=== PATIENT | male | born 1980 | race Caucasian/White ===

== ENCOUNTER 2023-03-19 19:05 | Inpatient (IN) | payer MEDICAID, SELFPAY ==
[2023-03-19] VITALS (19 sets, daily range): BP systolic 114–176; BP diastolic 46–80; PULSE 73–110; RESP 15–21; TEMP 37.7; O2SAT 91–100
--- NOTE | ~2023-03-19 | XR_ITS ---
Portable chest x-ray Comparison: 03/19/2023 Clinical History: Lung infiltrate Findings: Stable right-sided central venous line. Lungs are essentially clear, without focal consoli dation or pleural effusion. Previously noted right upper lobe airspace opacities essentially resolved . Cardiomediastinal silhouette is stable. Bones and soft tissues are unremarkable. Impression: Essentially complete interval resolution of right upper lobe airspace opacity. No significant pulmona ry abnormality evident on the current exam. Stable support line. Reviewed, dictated and finalized at location . ING STITCH REMOVER Impression: Essentially complete interval resolution of right upper lobe airspace opacity. No significant pulmonary abnormality evident on the current exam. Stable support line.
--- NOTE | ~2023-03-19 | XR_ITS ---
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 RESULT: Lines, tubes, and devices: None. Lungs and pleura: Low volumes with crowding. Irregular right upper lung opacity. Cardiomediastinal silhouette: Stable. Other: No acute osseous or upper abdominal finding. IMPRESSION: Irregular right upper lung opacity, may represent the consolidation of pneumonia. Pulmonary mass not excluded. Recommend short-term radiographic follow-up to demonstrate improvement/resolution. Reviewed, dictated and finalized at location K. RTISER IMPRESSION: Irregular right upper lung opacity, may represent the consolidation of pneumoni a. Pulmonary mass not excluded. Recommend short-term radiographic follow-up to demonstrate improvement/resolution.
[2023-03-19 19:57] LABS: Alveolar/Arterial O2 Gradient 98.9 mmHg; Base Excess ABG 1.2 mEq/l (+/-2.0); Fractional Inspired Oxygen 28 %; HCO3 ABG 24.4 mEq/l (22.0-26.0); Oxygen Content ABG 9.3 %vol (16.0-22.0); Oxyhemoglobin 90.9 % THb (90.0-100.0); PCO2 ABG 32.2 mmHg (35.0-45.0); PO2 ABG 62.7 mmHg (80.0-100.0); PO2 FiO2 Ratio Arterial Blood 2.24 %; pH ABG 7.497 (7.350-7.450)
[2023-03-19 19:58] LABS: Modified Allen's Test Pass; Site Drawn LEFT RADIAL
[2023-03-19 19:59] LABS: Device NASAL CANNULA
[2023-03-19 20:00] LABS: Total Hemoglobin 7.2 g/dL (12.0-18.0)
--- NOTE | 2023-03-19 20:14 | PC.NURSE ---
pt refused ct. pt stated he recently got a scan at [place] and the only reason he was confused at [facility] is because they just woke him up .
[2023-03-19 21:00] LABS: INR 1.6; Prothrombin Time 19.9 Seconds (11.1-14.7)
[2023-03-19 21:02] LABS: Partial Thromboplastin Time 56.3 SECONDS (22.3-36.8)
[2023-03-19 21:03] LABS: Alanine Aminotransferase 30 U/L (6-50); Albumin Level 2.6 g/dL (3.5-5.1); Alkaline Phosphatase 78 U/L (38-126); Anion Gap 3 mmol/L (8-16); Aspartate Amino Transferase 38 U/L (17-59); Bilirubin,Total 0.7 mg/dL (0.2-1.3); Blood Urea Nitrogen 20 mg/dL (9-20); Calcium 8.3 mg/dL (8.4-10.2); Carbon Dioxide 26 mmol/L (22-30); Chloride 103 mmol/L (98-107); Estimated CRCL calculation 96 ml/min; Estimated Glomerular Filt Rate 55; Glucose 115 mg/dL (65-110); Magnesium 1.6 mg/dL (1.6-2.3); Potassium 3.3 mmol/L (3.4-5.0); Sodium 132 mmol/L (137-145)
[2023-03-19] MEDS: SODIUM CHLORIDE 0.9% IV 1,000 ML 999 ML IV CONT (21:04)
[2023-03-19 21:15] LABS: NT Pro B Type Natriuretic Pept 291 pg/mL (19.9-100); Troponin I 0.029 ng/mL (0.000-0.034)
[2023-03-19 21:27] LABS: Influenza A QL RT-PCR Positive (Negative); Influenza B QL RT-PCR Negative (Negative); RSV RNA, RT-PCR Negative (Negative); SARS-CoV-2 RNA PCR Negative (Negative)
[2023-03-19 21:32] LABS: Procalcitonin 1.1 ng/mL
[2023-03-19 21:51] LABS: Immature Platelet Fraction Pct 7.6 % (0.9-11.2); Mean Corpuscular HGB Conc 30.5 g/dl (32-36); Mean Corpuscular Hemoglobin 29.2 pg (26-34); Mean Corpuscular Volume 95.7 fl (80-100); Mean Platelet Volume 10.8 fl (7.4-10.4); Red Blood Count 1.61 M/mm3 (4.6-6.20); Red Cell Distribution Width 16.9 % (11.5-14.5)
[2023-03-19 22:06] LABS: Hematocrit 15.4 % (42.0-52.0); Hemoglobin 4.7 g/dL (14.0-18.0); White Blood Count 1.5 K/mm3 (4.5-10.0)
[2023-03-19 22:07] LABS: Platelet Count Result 10 k/mm3 (150-375)
[2023-03-19 22:11] LABS: Band Neutrophils Percent 12 % (0-6); Lymphocytes Absolute Manual 0.26 K/mm3 (1.1-4.5); Lymphocytes Percent Manual 17.6 % (18-44); Monocytes Absolute Manual 0.09 K/mm3 (0.1-0.90); Monocytes Percent Manual 6 % (3-9); Neutrophils Absolute Manual 1.15 K/mm3 (1.3-6.7); Neutrophils Percent Manual 65 % (46-73); Total Cells Counted 17
[2023-03-19 22:12] LABS: Anisocytosis 1+ (NORMAL); Hypochromasia 2+ (NORMAL); Platelet Estimate Decreased (Adequate); Schistocytes None Seen (NORMAL)
[2023-03-19 22:43] LABS: Appearance Urine Cloudy (Clear); Bacteria Urine None Seen /hpf; Bilirubin Urine Negative (Negative); Blood Urine 1+ (Negative); Color Urine Yellow (Yellow); Glucose Urine UA Trace mg/dL (Negative); Granular Casts Urine Present /lpf; Hyaline Casts Urine Present /lpf; Ketones Urine Negative (Negative); Leukocyte Esterase Ur Negative LEU/UL (Negative); Mucus Urine Present /lpf; Need Manual Microscopic Reviewed; Nitrate Urine Negative (Negative); Protein Urine 2+ mg/dL (Negative); Specific Grav Ur 1.012 (1.001-1.035); Squamous Epithelial Cell Urine Occasional /hpf (Few); Urobilinogen Urine 0.2 mg/dL (<2.0); WBC Urine 0-5 /hpf; pH Urine 5.5 (5.0-9.0)
--- NOTE | 2023-03-19 22:49 | ECG_ITS ---
Measurements Intervals [place] Rate: 102 P: 47 IL: 160 QRS: -12 QRSD: 98 T: 135 QT: 332 QTc: 432 Interpretive Statements SINUS TACHYCARDIA CANNOT RULE OUT SEPTAL INFARCT, AGE INDETERMINATE INFERIOR INFARCT, AGE INDETERMINATE ST-T WAVE ABNORMALITY IN HIGH LATERAL LEADS- CONSIDR ISCHEMIA ABNORMAL ECG NO PREVIOUS ECG AVAILABLE FOR COMPARISON Electronically Signed On 03-20-2023 8:09:14 RENDERING EQUIPMENT TENDER by Mele Bustillos D.O.
[2023-03-19 23:00] LABS: Add Urine Microscopic? YES
[2023-03-19] MEDS: CEFEPIME 2 GM/NS 50 ML 2 GM/50 ML BAG IVPB (23:04)
[2023-03-19] MEDS: VANCOMYCIN 1,250 MG/NS 250 ML 1,250 MG/250 ML BAG 166.67 MG IVPB (23:41)
[2023-03-20] VITALS (127 sets, daily range): BP systolic 104–170; BP diastolic 53–95; PULSE 60–107; RESP 11–24; TEMP 36.2–37.6; O2SAT 91–100
[2023-03-20] MEDS: SODIUM CHLORIDE 0.9% IV 250 ML 30 ML IV CONT ×2 (00:44→07:54)
[2023-03-20] MEDS: TUBING, BLOOD PLUM PUMP TUBING 1 EACH XX ×4 (00:45→17:04)
[2023-03-20 00:48] LABS: Troponin I 0.028 ng/mL (0.000-0.034)
[2023-03-20] MEDS: VANCOMYCIN 1,250 MG/NS 250 ML 1,250 MG/250 ML BAG 166.67 MG IVPB (01:17)
[2023-03-20 01:31] LABS: Estimated CRCL calculation 103 ml/min; Estimated Glomerular Filt Rate 60
--- NOTE | 2023-03-20 01:38 | ED.GENADULT ---
HPI - General Adult General Chief complaint: Shortness of Breath/Dyspnea <Charles Seals MD - Last Filed: 03/20/23 01:43> Stated complaint: fever, sob <Charles Seals MD - Last Filed: 03/20/23 01:43> Time Seen by Provider: 03/19/23 19:14 <Charles Seals MD - Last Filed: 03/20/23 01:43> History of Present Illness HPI narrative: patient is a 42-year-old gentleman who presents emergency department with chief complaint of fever and shortness of breath. The patient is being treated at [place] for cancer and was recently admitted for influenza and also had a chemo treatment. Patient reports that he initially confused and hypoxic and had a low-grade fever. <Charles Seals MD - Last Filed: 03/20/23 01:43> Related Data Home medications: Home Medications Medication Instructions Recorded Confirmed amlodipine 10 mg tablet 10 mg PO DAILY 03/21/23 03/21/23 apixaban 5 mg tablet (Eliquis) 5 mg PO BID 03/21/23 03/21/23 carvedilol 25 mg tablet 25 mg PO BID 03/21/23 03/21/23 cholecalciferol (vitamin D3) 1,250 1,250 mcg PO WEEKLY 03/21/23 mcg (50,000 unit) tablet cholecalciferol (vitamin D3) 50 50 mcg PO DAILY 03/21/23 mcg (2,000 unit) tablet ciprofloxacin HCl 500 mg tablet 500 mg PO Q12H 03/21/23 03/21/23 dexamethasone 4 mg tablet 4 mg PO DAILY 03/21/23 03/21/23 filgrastim 480 mcg/1.6 mL 480 mcg subcut DAILY 03/21/23 injection solution hydralazine 50 mg tablet 50 mg PO TID 03/21/23 03/21/23 levothyroxine 25 mcg tablet 25 mcg PO DAILY 03/21/23 03/21/23 morphine 30 mg tablet,extended 30 mg PO Q12H 03/21/23 03/21/23 release mupirocin 2 % topical ointment 1 applic topical BID 03/21/23 03/21/23 ondansetron 8 mg disintegrating 8 mg PO Q8H PRN Nausea And Vomiting 03/21/23 03/21/23 tablet pregabalin 150 mg capsule (Lyrica) 150 mg PO BID 03/21/23 03/21/23 silver sulfadiazine 1 % topical 1 applic topical DAILY 03/21/23 03/21/23 cream <Charles Seals MD - Last Filed: 03/20/23 01:43> Allergies/adverse reactions: Allergies Allergy/AdvReac Type Severity Reaction Status Date / Time No Known Allergies Allergy Verified 03/19/23 20:17 <Charles Seals MD - Last Filed: 03/20/23 01:43> Review of Systems Review of Systems: A 10 system review of systems was completed on the patient and is negative except for what is stated in the HPI. Nursing and ancillary documentation was reviewed. <Charles Seals MD - Last Filed: 03/20/23 01:43> PMFSH Family History Family History: Family History (Updated 03/21/23 @ 01:58 by Lucille Wellington RN) Father Hypertension <Charles Seals MD - Last Filed: 03/20/23 01:43> Social History Social History: Social History Smoking status: Never smoker Second hand tobacco smoke exposure: No Alcohol intake: never Substance use: never Do You Feel Safe in your Home?: Yes Lack of Transportation: No Lack of Food: Never True Current Housing: I Have Housing Concerned About Future Housing: No Difficulty Paying Gas/Electric Bills: No Difficulty Paying for Meds: No Currently Unemployed: No Education: Bachelor's Degree Difficulty w/ Childcare or Family Care: No Spiritual care concerns: No <Charles Seals MD - Last Filed: 03/20/23 01:43> Exam Narrative: GENERAL: Ill-appearing, well-nourished, and in no acute distress. pale HEAD: Normocephalic, atraumatic. EYES: PERRLA and EOMI. ENT: Nares clear, no rhinorrhea or epistaxis. Mucous membranes moist. NECK: Supple. PICC line present CHEST: Clear to auscultation. No respiratory distress. HEART: Regular rate and rhythm. No murmur heard. Normal peripheral pulses. ABDOMEN: Soft, nontender, nondistended, normal active bowel sounds. EXTREMITIES: Normal range of motion. No edema. SKIN: Warm, dry, no rash. NEURO: No focal defici
[2023-03-20 02:57] LABS: MRSA (PCR) DETECTED (NOT DETECTE)
[2023-03-20] MEDS: SODIUM CHLORIDE 0.9% IV 250 ML 30 ML ×2 (03:55→17:04)
[2023-03-20 06:30] LABS: Immature Platelet Fraction Pct 8.7 % (0.9-11.2); Mean Corpuscular HGB Conc 32.4 g/dl (32-36); Mean Corpuscular Hemoglobin 30.2 pg (26-34); Mean Corpuscular Volume 93.1 fl (80-100); Mean Platelet Volume 10.8 fl (7.4-10.4); Red Blood Count 1.89 M/mm3 (4.6-6.20); Red Cell Distribution Width 15.7 % (11.5-14.5)
[2023-03-20 06:41] LABS: INR 1.7
[2023-03-20 06:43] LABS: Lactic Acid Reflex 0.8 mmol/L (0.7-2.0)
[2023-03-20 06:46] LABS: Anion Gap 3 mmol/L (8-16); Blood Urea Nitrogen 16 mg/dL (9-20); Calcium 6.3 mg/dL (8.4-10.2); Carbon Dioxide 20 mmol/L (22-30); Chloride 112 mmol/L (98-107); Estimated CRCL calculation 132 ml/min; Estimated Glomerular Filt Rate > 60; Glucose 95 mg/dL (65-110); Potassium 2.6 mmol/L (3.4-5.0); Sodium 135 mmol/L (137-145)
[2023-03-20 06:57] LABS: Hemoglobin 5.7 g/dL (14.0-18.0)
[2023-03-20 06:58] LABS: Hematocrit 17.6 % (42.0-52.0); Platelet Count Result 10 k/mm3 (150-375)
[2023-03-20 07:11] LABS: Band Neutrophils Percent 1 % (0-6); Hypochromasia 2+ (NORMAL); Lymphocytes Absolute Manual 0.46 K/mm3 (1.1-4.5); Metamyelocytes Percent 2 %; Microcytosis 1+ (NORMAL); Monocytes Absolute Manual 0.12 K/mm3 (0.1-0.90); Monocytes Percent Manual 6 % (3-9); Myelocytes Percent 3 %; Neutrophils Absolute Manual 1.32 K/mm3 (1.3-6.7); Neutrophils Percent Manual 65 % (46-73); Platelet Estimate Decreased (Adequate); Schistocytes None Seen (NORMAL); Total Cells Counted 100
[2023-03-20] MEDS: CEFEPIME 2 GM/NS 50 ML 2 GM/50 ML BAG IVPB ×3 (07:19→23:45)
[2023-03-20] MEDS: KCL 20 MEQ/SW 100 ML 100 ML 50 MEQ IVPB (07:50)
--- NOTE | 2023-03-20 09:01 | PC.NURSE ---
[facility] transfer center called for update on the pt.
[2023-03-20] MEDS: VANCOMYCIN 1,500 MG/NS 500 ML 1,500 MG/500 ML BAG 250 MG IVPB (12:32)
--- NOTE | 2023-03-20 16:38 | PHAR ---
HOME MED: MORPHINE SULFATE ER 30 MG TAB, TAKE 1 TABLET BY MOUTH TWICE A DAY. ONE PILL BROUGHT DOWN TO PHARMACY. COLOR: LAVENDER SHAPE: SNOQUALMIE IMPRINT: ABG 30 VERIFIED BY PHARMACY.
[2023-03-20] MEDS: MORPHINE SULFATE (*CRX) 30 MG TABCR PO (16:48)
[2023-03-20 18:57] LABS: Hematocrit 24.2 % (42.0-52.0); Hemoglobin 7.9 g/dL (14.0-18.0); Immature Platelet Fraction Pct 3.8 % (0.9-11.2); Mean Corpuscular HGB Conc 32.6 g/dl (32-36); Mean Corpuscular Hemoglobin 29.7 pg (26-34); Mean Platelet Volume 10.3 fl (7.4-10.4); Platelet Count Result 33 k/mm3 (150-375); Red Blood Count 2.66 M/mm3 (4.6-6.20); Red Cell Distribution Width 15.8 % (11.5-14.5); White Blood Count 2.3 K/mm3 (4.5-10.0)
[2023-03-20 19:13] LABS: Anion Gap 4 mmol/L (8-16); Blood Urea Nitrogen 18 mg/dL (9-20); Calcium 7.9 mg/dL (8.4-10.2); Carbon Dioxide 25 mmol/L (22-30); Chloride 105 mmol/L (98-107); Estimated CRCL calculation 132 ml/min; Estimated Glomerular Filt Rate > 60; Glucose 96 mg/dL (65-110); Potassium 2.8 mmol/L (3.4-5.0); Sodium 134 mmol/L (137-145)
[2023-03-20 19:39] LABS: Band Neutrophils Percent 16 % (0-6); Lymphocytes Absolute Manual 0.39 K/mm3 (1.1-4.5); Lymphocytes Percent Manual 17 % (18-44); Monocytes Absolute Manual 0.13 K/mm3 (0.1-0.90); Monocytes Percent Manual 6 % (3-9); Neutrophils Percent Manual 58 % (46-73); Total Cells Counted 100
[2023-03-20 19:40] LABS: Metamyelocytes Percent 2 %; Myelocytes Percent 1 %; Nucleated Red Blood Cells 1 %; Ovalocytes 1+ (NORMAL); Platelet Estimate Decreased (Adequate); Schistocytes None Seen (NORMAL)
[2023-03-20] MEDS: POTASSIUM CHLORIDE INJ 40 MEQ in SODIUM CHLORIDE 0.9% IV 500 ML 130 MEQ IVPB (21:16)
--- NOTE | 2023-03-20 21:51 | PM.IMHP ---
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 EXAMINATION:? XR chest PICC line Exam Date/Time:? 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 Comparison:? Right subclavian central line terminates at the cavoatrial junction. RESULT: Lines, tubes, and devices:? None. Lungs and pleura:? Low volumes with crowding. Irregular right upper lung opacity. Cardiomediastinal silhouette:? Stable. Other:? No acute osseous or upper abdominal finding. ? IMPRESSION: Irregular right upper lung opacity, may represent the consolidation of pneumonia. Pulmonary mass not excluded. Recommend short-term radiographic follow-up to demonstrate improvement/resolution. Review of Systems Review of Systems: Generalized weakness, abnormal lab work, shortness of breath, fever Constitutional: Constitutional: Reports fatigue, Reports fever(s), Reports lethargy, Reports malaise, Reports poor appetite and Reports weakness Eyes: Eyes: Denies change in vision ENT: Denies dysphagia and Denies odynophagia Cardiovascular: Cardiovascular: Denies chest pain, Denies radiating jaw, neck or arm pain and Denies palpitations Respiratory: Respiratory: Reports dyspnea Gastrointestinal: Gastrointestinal: Reports constipation Genitourinary: Genitourinary: Denies dysuria Musculoskeletal: Musculoskeletal: Reports other (Left upper extremity swelling) Integumentary/Breasts: Skin/Breast: Reports rash (Bilateral lower extremity rash secondary to chemotherapy) and Reports other (Left upper extremity bruise) Neurologic: Reports focal weakness (Left upper extremity) and Reports Sensory deficit (Neuro) (Left upper extremity) Psychiatric: Psychiatric: Reports no additional psychiatric complaints and Reports as per HPI Endocrine: Endocrine: Denies cold intolerance, Denies fatigue, Denies flushing, Denies heat intolerance, Denies polyphagia, Denies polydipsia and Denies palpitations Hematologic/Lymphatic: Hematologic/Lymphatic: Reports no additional hematologic/lymphatic complaints and Reports as per HPI Allergic/Immunologic: Allergic/Immunologic: Reports no additional allergic/immunologic complaints and Reports as per HPI [facility] Family History Family History (Updated 03/21/23 @ 01:58 by Lucille Wellington RN) Father Hypertension Social History Social History Smoking status: Never smoker Second hand tobacco smoke exposure: No Alcohol intake: never Substance use: never Do You Feel Safe in your Home?: Yes Lack of Transportation: No Lack of Food: Never True Current Housing: I Have Housing Concerned About Future Housing: No Difficulty Paying Gas/Electric Bills: No Difficulty Paying for Meds: No Currently Unemployed: No Education: Bachelor's Degree Difficulty w/ Childcare or Family Care: No Spiritual care concerns: No Meds Home Medications and Allergies Home Medications Medication Instructions Recorded Confirmed Type amlodipine 10 mg tablet 10 mg PO DAILY 03/21/23 03/21/23 History apixaban 5 mg tablet (Eliquis) 5 mg PO BID 03/21/23 03/21/23 History bisacodyl 10 mg rectal suppository 10 mg RECTAL DAILY PRN Constipation 03/21/23 03/21/23 History bisacodyl 5 mg tablet,delayed 5 mg PO HS 03/21/23 03/21/23 History release calcium carbonate 600 mg calcium 600 mg PO BID 03/21/23 03/21/23 History (1,500 mg) tablet carvedilol 25 mg tablet 25 mg PO BID 03/21/23 03/21/23 History cholecalciferol (vitamin D3) 1,250 1,250 mcg PO WEEKLY 03/21/23 03/21/23 History mcg (50,000 unit) tablet cholecalciferol (vitamin D3) 50 50 mcg PO DAILY 03/21/23
[2023-03-20] MEDS: MAGNESIUM SULF 2 GM/WATER 50ML 2 GM/50 ML BAG IVPB (23:33)
[2023-03-21] VITALS (17 sets, daily range): BP systolic 122–147; BP diastolic 65–73; PULSE 44–71; RESP 18–20; TEMP 36–36.6; O2SAT 94–97; BMI 38.9
[2023-03-21] MEDS: VANCOMYCIN 1,500 MG/NS 500 ML 1,500 MG/500 ML BAG 250 MG IVPB ×2 (00:26→15:10)
--- NOTE | 2023-03-21 00:42 | ADMGEN ---
This patient, Jhon Isaacs, was admitted to IMU Room 210-01. Patient/family oriented to hospital policies and general routines including ID bracelet, bed and alarms, visiting hours, pain management, procedures, bathroom and other care routines, personal items, smoking policy, room service/diet, and visiting hours. Information on how to activate the Rapid Response Team has been discussed. Patient/Family are encouraged to report perceived risks to care and to ask questions if they do not understand what they are told or what they should do.
[2023-03-21] MEDS: LEVOTHYROXINE SODIUM 25 MCG TABLET PO (06:09)
[2023-03-21] MEDS: CEFEPIME 2 GM/NS 50 ML 2 GM/50 ML BAG IVPB ×3 (06:09→21:02)
[2023-03-21 06:49] LABS: Basophils Percent Auto 1.6 % (0.2-1.2); Eosinophils Percent Auto 1.6 % (0-4.4); Hematocrit 23.2 % (42.0-52.0); Hemoglobin 7.6 g/dL (14.0-18.0); Immature Granulocyte Absolute 0.13 K/mm3 (0.00-0.031); Immature Granulocyte Percent A 6.7 % (0-0.5); Immature Platelet Fraction Pct 4.9 % (0.9-11.2); Lymphocytes Absolute Auto 0.22 K/mm3 (0.9-3.2); Lymphocytes Percent Auto 11.4 % (18.3-44.2); Mean Corpuscular HGB Conc 32.8 g/dl (32-36); Mean Corpuscular Volume 91.7 fl (80-100); Mean Platelet Volume 11.3 fl (7.4-10.4); Monocytes Absolute Auto 0.2 K/mm3 (0.1-0.6); Monocytes Percent Auto 9.8 % (2.6-8.5); Neutrophils Absolute Auto 1.3 K/mm3 (1.3-6.7); Neutrophils Percent Auto 68.9 % (45.5-73.1); Platelet Count Result 30 k/mm3 (150-375); Red Blood Count 2.53 M/mm3 (4.6-6.20); Red Cell Distribution Width 15.9 % (11.5-14.5)
[2023-03-21 07:04] LABS: Estimated CRCL calculation 143 ml/min; Estimated Glomerular Filt Rate > 60
[2023-03-21 07:19] LABS: White Blood Count 1.9 K/mm3 (4.5-10.0)
[2023-03-21 07:35] LABS: Platelet Estimate Decreased (Adequate); Schistocytes None Seen (NORMAL)
[2023-03-21 07:36] LABS: Hypochromasia 1+ (NORMAL)
[2023-03-21 09:12] LABS: Anion Gap 1 mmol/L (8-16); Blood Urea Nitrogen 15 mg/dL (9-20); Calcium 7.7 mg/dL (8.4-10.2); Carbon Dioxide 25 mmol/L (22-30); Chloride 107 mmol/L (98-107); Estimated CRCL calculation 143 ml/min; Estimated Glomerular Filt Rate > 60; Glucose 85 mg/dL (65-110); Magnesium 1.9 mg/dL (1.6-2.3); Phosphorus 2.4 mg/dL (2.5-4.5); Potassium 2.9 mmol/L (3.4-5.0); Sodium 133 mmol/L (137-145)
[2023-03-21] MEDS: DEXAMETHASONE 4 MG TABLET PO (10:14)
[2023-03-21] MEDS: carvediloL 25 MG TABLET PO ×2 (10:14→18:00)
[2023-03-21] MEDS: PREGABALIN (*CRX) 75 MG CAPSULE 150 MG PO ×2 (10:14→18:00)
[2023-03-21] MEDS: FILGRASTIM-AAFI 480 MCG/0.8 ML SYRINGE SUB-Q (10:15)
[2023-03-21] MEDS: MUPIROCIN 2% OINT 22 GM TUBE 1 APPLIC TOPICAL ×2 (10:15→17:08)
[2023-03-21] MEDS: MORPHINE SULFATE (*CRX) 15 MG TABCR 30 MG PO ×2 (10:16→21:02)
[2023-03-21] MEDS: AZITHROMYCIN 500 MG/NS 250 ML 500 MG/250 ML BAG 250 MG IVPB (10:16)
[2023-03-21] MEDS: POTASSIUM PHOS,M-BASIC-D-BASIC 40 MMOL in SODIUM CHLORIDE 0.9% IV 250 ML 43.89 MMOL IVPB (11:18)
[2023-03-21 12:27] LABS: Vancomycin Trough 19.9 ug/mL (10.0-20.0)
[2023-03-21] MEDS: SILVER SULFADIAZINE 1% CR 400 GM JAR (*BKC) 1 APPLIC TOPICAL (12:56)
--- NOTE | 2023-03-21 18:07 | PM.IMPN ---
Progress Note: A&P Assessment and Plan (1) Sarcoma: Code(s): C49.9 - Malignant neoplasm of connective and soft tissue, unspecified Status: Acute (2) Pancytopenia: Code(s): D61.818 - Other pancytopenia Status: Acute (3) Acute anemia: Code(s): D64.9 - Anemia, unspecified Status: Acute (4) Electrolyte disorder: Code(s): E87.8 - Other disorders of electrolyte and fluid balance, not elsewhere classified Status: Acute (5) Obesity: Code(s): E66.9 - Obesity, unspecified Status: Acute Plan Patient admitted to medical unit under full inpatient medical status Continue with aggressive IV antibiotics the form of IV cefepime, vancomycin and azithromycin for febrile neutropenia Patient's temperature was 37.7?C on admission down to 36.3?C Monitor blood cultures Oncology consult given for evaluation and further treatment recommendations Patient has pancytopenia secondary to chemotherapy which will be monitored closely Patient received 4 units of leukoreduced RBCs and 2 units of platelets since admission Patient ordered aggressive IV potassium and phosphate replacement is for respective deficiencies Monitor labs and electrolytes closely Patient awaiting transfer to [facility] once bed is available to be followed by his established oncologist ? Patient seen and examined at bedside during my morning rounds ? Collaborated with patient's nurse at the bedside in detail and addressed all concerns ? Labs, electrolytes, radiology, investigations and test results reviewed ? Consult/Nursing/Ancilliary notes on the chart reviewed and appreciated ? Spoke with patient/mother at the bedside and answered all the questions that they had Repeat labs in a.m. Electrolyte replacement as per protocol. Patient will be monitored very closely on the floor. Further recommendations as per the hospital course. Time Spent With Patient Time with patient: 25 - 35 minutes Subjective Date/time seen: 03/21/23 18:07 Interval history: Very pleasant gentleman, lying in bed. Feels better aggressive replacement of electrolytes. Both him and his mother has multiple questions which have been answered. Review of Systems Review of Systems: Patient feet, tired and fatigued. Difficulty ambulation with fall risk due to weakness. Denies any chest pain, seizures or headaches All systems reviewed & are unremarkable except as noted in HPI and below Exam Narrative: PHYSICAL EXAMINATION: Vital signs: Please see the chart General physical exam: Obese gentleman, lying in bed, appears to be weak, tired and fatigued Head/eyes: Atraumatic, EOMI, PERRLA ENT: Moist mucous membranes, nasal passages clear Neck: Supple, full range of motion, trachea midline CVS: S1 + S2, regular rate and rhythm, no murmurs Respiratory: Bilaterally fair air entry in both lung reynolds, mild B/L crackles, symmetric chest expansion, no distress Abdomen: Soft, non-tender, bowel sounds +ve, no organomegaly Extremities: No clubbing, no cyanosis, no edema, no calf tenderness Musculoskeletal: Moves all, adequate range of motion, no muscle spasms, +++ swelling over left upper arm biceps region secondary to sarcoma Skin: Warm, dry, no jaundice, no cyanosis Neurological: Awake, alert, oriented x 3, cranial nerves II-XII intact, no focal neurological deficits Psychiatric: + anxious mood, non suicidal Objective Data Vital Signs Vital Signs: Vital Signs - 24 hr 03/20/23 18:45 03/20/23 19:41 03/20/23 23:52 Temperature 36.3 C L Pulse Rate 68 70 67 Respiratory Rate 19 15 16 Blood Pressure 141/72 H 153/59 H 152/72 H Pulse Oximetry 96 96 97 Oxygen Delivery 03/21/23 00:51 03/21/23 02:00 03/21/23 02:49 Temperature 36.3 C L Pulse Rate 60 58 L Respiratory Rate 20 Blood Pressure 125/67 Pulse Oximetry 97 97 Oxygen Delivery Room Air 03/21/23 04:10 03/21/23 04:00 03/21/23 04:00 Temperature 36.3 C L Pulse Rate 65 62 65 Respirato
[2023-03-21 18:48] LABS: Potassium 3.4 mmol/L (3.4-5.0)
[2023-03-21] MEDS: KCL 20 MEQ/SW 100 ML 100 ML 50 MEQ IVPB (19:04)
--- NOTE | 2023-03-21 19:21 | PDONCCN ---
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 He started left upper extremity swelling with hardening in August 2022. 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 In November [address] scan that showed bilateral pulmonary nodules suspicious for metastatic disease. He started chemotherapy cycle 1 with a IM regimen on December 09, 2022. He has been followed by Dr. Jolly at [facility]. Patient received cycle 4 of chemotherapy on March 08. He only received Adriamycin at that time and ifosfamide was held due to pancytopenia. He was admitted to the hospital pancytopenia. Labs showed WBC count of 1.5, [place] 4[place] [address]. Patient was discharged to the longterm with Neupogen fair 80 mcg daily starting March 10. He was also given ciprofloxacin 500 mg b.i.d. starting March 15. Patient had chest x-rays done that showed irregular right upper lung opacity may represent pneumonia. He was started on broad-spectrum antibiotic with cefepime, the thrombi seen and vancomycin. He denies any fevers and chills. Complain of tiredness and fatigue and left upper extremity edema and discomfort. Review of Systems - Review of Systems All systems reviewed & are unremarkable except as noted in HPI and bel - Neurologic Reports focal weakness (Left upper extremity), Reports sensory deficit (Left upper extremity), Reports weakness PMFSH Medical History: Medical History (Last Updated 03/21/23 @ 18:11 by Helder Burnett MD) Obesity Family History: Family History (Last Updated 03/21/23 @ 01:58 by Lucille Wellington RN) Father Hypertension - Social History Social History: Social History (Last Reviewed 03/20/23 @ 01:41 by Charles Seals MD) Alcohol Use: Alcohol intake: never Substance Use: Substance use: never Others: Spiritual care concerns: No Smoking Status: Smoking status: Never smoker Second hand tobacco smoke exposure: No Social Determinants of Health: Do You Feel Safe in your Home?: Yes Has the Lack of Transportation Kept You From Medical Appointments or From Getting Medications?: No Within the Past 12 Months, Were You Worried Whether Your Food Would Run Out Before You Got Money to Buy More?: Never True What is Your Housing Situation Today?: I Have Housing Are You Worried That in the Next 2 Months, You May Not Have Your Own Housing to Live In?: No Do You Have Trouble Paying Your Heating Or Electricity Bill?: No Do You Have Trouble Paying For Medicines?: No Are You Currently Unemployed and Looking for Work?: No Highest Level of Education Completed: Bachelor's Degree Do You Have Trouble With Childcare or the Care of a Family Member?: No Exam - Vital Signs Vital Signs - 24 hr 03/20/23 19:41 03/20/23 23:52 03/21/23 00:51 Temperature 36.3 C L Pulse Rate 70 67 60 Respiratory Rate 15 16 20 Blood Pressure 153/59 H 152/72 H 125/67 Pulse Oximetry 96 97 97 Oxygen Delivery 03/21/23 02:00 03/21/23 02:49 03/21/23 04:10 Temperature 36.3 C L Pulse Rate 58 L 65 Respiratory Rate 20 Blood Pressure 128/65 Pulse Oximetry 97 97 Oxygen Delivery Room Air 03/21/23 04:00 03/21/23 04:00 03/21/23 06:00 Temperature Pulse Rate 62 65 51 L Respiratory Rate 20 Blood Pressure Pulse Oximetry 97 Oxygen Delivery Room Air 03/21/23 08:00 03/21/23 10:14 03/21/23 08:00 Temperature 36.0 C L Pulse Rate 61 61 56 L Respiratory Rate 18 Blood Pressure 122/71 Pulse Oximetry 96 Oxygen Delivery 03/21/23 10:00 03/21/23 12:00 03/21/23 08:00 Temperature Pulse Rate 62 70
[2023-03-21 20:24] LABS: Iron 60 ug/dL (49-181)
[2023-03-21 20:33] LABS: Percent Iron Saturation 40 % (20-50)
[2023-03-21] MEDS: BISACODYL 5 MG TABLET EC PO (21:02)
[2023-03-21] MEDS: CENTRAL LINE FLUSH 10 ML IV PUSH (21:02)
[2023-03-21 21:39] LABS: Folic Acid 4.9 ng/mL (2.76->20); Vitamin B12 > 1000.0 pg/mL (239-931)
[2023-03-22] VITALS (19 sets, daily range): BP systolic 137–149; BP diastolic 64–92; PULSE 46–62; RESP 16–108; TEMP 36.4–37.2; O2SAT 97–100
[2023-03-22] MEDS: VANCOMYCIN 1,500 MG/NS 500 ML 1,500 MG/500 ML BAG 250 MG IVPB ×2 (01:40→14:37)
[2023-03-22 01:56] LABS: Ferritin > 2000.00 ng/mL (17.9-464)
[2023-03-22] MEDS: CEFEPIME 2 GM/NS 50 ML 2 GM/50 ML BAG IVPB ×3 (05:32→21:47)
[2023-03-22] MEDS: CENTRAL LINE FLUSH 10 ML IV PUSH ×3 (05:32→21:47)
[2023-03-22] MEDS: LEVOTHYROXINE SODIUM 25 MCG TABLET PO (05:32)
[2023-03-22 05:52] LABS: Basophils Absolute Auto 0.1 K/mm3 (0.0-0.1); Basophils Percent Auto 1.1 % (0.2-1.2); Eosinophils Percent Auto 0.2 % (0-4.4); Hematocrit 24.4 % (42.0-52.0); Hemoglobin 7.8 g/dL (14.0-18.0); Immature Granulocyte Percent A 9.2 % (0-0.5); Immature Platelet Fraction Pct 8.2 % (0.9-11.2); Lymphocytes Absolute Auto 0.25 K/mm3 (0.9-3.2); Lymphocytes Percent Auto 4.6 % (18.3-44.2); Mean Corpuscular Hemoglobin 29.4 pg (26-34); Mean Corpuscular Volume 92.1 fl (80-100); Mean Platelet Volume 11.8 fl (7.4-10.4); Monocytes Absolute Auto 0.3 K/mm3 (0.1-0.6); Monocytes Percent Auto 5.5 % (2.6-8.5); Neutrophils Absolute Auto 4.3 K/mm3 (1.3-6.7); Neutrophils Percent Auto 79.4 % (45.5-73.1); Platelet Count Result 30 k/mm3 (150-375); Red Blood Count 2.65 M/mm3 (4.6-6.20); Red Cell Distribution Width 16.1 % (11.5-14.5); White Blood Count 5.4 K/mm3 (4.5-10.0)
[2023-03-22 06:05] LABS: Anion Gap 5 mmol/L (8-16); Blood Urea Nitrogen 13 mg/dL (9-20); Calcium 7.8 mg/dL (8.4-10.2); Carbon Dioxide 22 mmol/L (22-30); Chloride 108 mmol/L (98-107); Estimated CRCL calculation 143 ml/min; Estimated Glomerular Filt Rate > 60; Glucose 105 mg/dL (65-110); Phosphorus 2.4 mg/dL (2.5-4.5); Potassium 3.4 mmol/L (3.4-5.0); Sodium 135 mmol/L (137-145)
[2023-03-22] MEDS: AZITHROMYCIN 500 MG/NS 250 ML 500 MG/250 ML BAG 250 MG IVPB (08:51)
[2023-03-22] MEDS: DEXAMETHASONE 4 MG TABLET PO (08:52)
[2023-03-22] MEDS: MORPHINE SULFATE (*CRX) 15 MG TABCR 30 MG PO ×2 (08:53→21:47)
[2023-03-22] MEDS: carvediloL 25 MG TABLET PO ×2 (08:54→16:30)
[2023-03-22] MEDS: PREGABALIN (*CRX) 75 MG CAPSULE 150 MG PO ×2 (08:54→16:30)
[2023-03-22] MEDS: SILVER SULFADIAZINE 1% CR 400 GM JAR (*BKC) 1 APPLIC TOPICAL (08:59)
[2023-03-22] MEDS: FILGRASTIM-SNDZ 480 MCG/0.8 ML SYRINGE SUB-Q (08:59)
[2023-03-22] MEDS: POTASSIUM PHOS,M-BASIC-D-BASIC 40 MMOL in SODIUM CHLORIDE 0.9% IV 250 ML 43.89 MMOL IVPB (12:11)
--- NOTE | 2023-03-22 19:01 | PM.IMPN ---
Progress Note: A&P Assessment and Plan (1) Sarcoma: Code(s): C49.9 - Malignant neoplasm of connective and soft tissue, unspecified Status: Acute (2) Pancytopenia: Code(s): D61.818 - Other pancytopenia Status: Acute (3) Acute anemia: Code(s): D64.9 - Anemia, unspecified Status: Acute (4) Electrolyte disorder: Code(s): E87.8 - Other disorders of electrolyte and fluid balance, not elsewhere classified Status: Acute (5) Obesity: Code(s): E66.9 - Obesity, unspecified Status: Acute Plan Patient admitted to medical unit under full inpatient medical status Continue with aggressive IV antibiotics the form of IV cefepime, vancomycin and azithromycin for febrile neutropenia Patient's temperature was 37.7?C on admission down to 36.3?C Monitor blood cultures Oncology consult given for evaluation and further treatment recommendations Patient has pancytopenia secondary to chemotherapy which will be monitored closely Patient received 4 units of leukoreduced RBCs and 2 units of platelets since admission Patient ordered aggressive IV potassium and phosphate replacement yesterday and today for respective deficiencies Patient seen and evaluated by Oncology Patient started on neutropenic precautions, to continue until ANC is at least 500 or more Patient 's ANC jumped from 130 to 430 overnight Monitor labs and electrolytes closely Patient awaiting transfer to [facility] once bed is available to be followed by his established oncologist ? Patient seen and examined at bedside during my morning rounds ? Collaborated with patient's nurse at the bedside in detail and addressed all concerns ? Labs, electrolytes, radiology, investigations and test results reviewed ? Consult/Nursing/Ancilliary notes on the chart reviewed and appreciated ? Spoke with patient/mother at the bedside and answered all the questions that they had Repeat labs in a.m. Electrolyte replacement as per protocol. Patient will be monitored very closely on the floor. Further recommendations as per the hospital course. Time Spent With Patient Time with patient: 15 - 25 minutes Subjective Date/time seen: 03/22/23 19:01 Interval history: Patient is lying in bed. Continues to feel better after aggressive electrolytes and blood products replacement. Waiting transfer to [facility]. Review of Systems Review of Systems: Patient feet, tired and fatigued. Difficulty ambulation with fall risk due to weakness. Denies any chest pain, seizures or headaches All systems reviewed & are unremarkable except as noted in HPI and below Exam Narrative: PHYSICAL EXAMINATION: Vital signs: Please see the chart General physical exam: Obese gentleman, lying in bed, appears to be weak, tired and fatigued Head/eyes: Atraumatic, EOMI, PERRLA ENT: Moist mucous membranes, nasal passages clear Neck: Supple, full range of motion, trachea midline CVS: S1 + S2, regular rate and rhythm, no murmurs Respiratory: Bilaterally fair air entry in both lung reynolds, mild B/L crackles, symmetric chest expansion, no distress Abdomen: Soft, non-tender, bowel sounds +ve, no organomegaly Extremities: No clubbing, no cyanosis, no edema, no calf tenderness Musculoskeletal: Moves all, adequate range of motion, no muscle spasms, +++ swelling over left upper arm biceps region secondary to sarcoma Skin: Warm, dry, no jaundice, no cyanosis Neurological: Awake, alert, oriented x 3, cranial nerves II-XII intact, no focal neurological deficits Psychiatric: + anxious mood, non suicidal Objective Data Vital Signs Vital Signs: Vital Signs - 24 hr 03/21/23 19:53 03/21/23 23:53 03/21/23 20:00 Temperature 36.6 C 36.3 C L Pulse Rate 63 53 L 57 L Respiratory Rate 18 18 Blood Pressure 134/73 134/69 Pulse Oximetry 96 94 Oxygen Delivery 03/21/23 22:00 03/22/23 00:00 03/22/23 02:00 Temperature Pulse Rate 55 L 51 L 52 L Respiratory Rate Blood Pressure Pulse
[2023-03-23] VITALS (18 sets, daily range): BP systolic 146–169; BP diastolic 64–89; PULSE 41–67; RESP 18–20; TEMP 36.4–36.9; O2SAT 93–100
[2023-03-23 03:16] LABS: Vancomycin Trough 22.1 ug/mL (10.0-20.0)
[2023-03-23] MEDS: LEVOTHYROXINE SODIUM 25 MCG TABLET PO (05:39)
[2023-03-23] MEDS: CENTRAL LINE FLUSH 10 ML IV PUSH ×3 (05:39→20:41)
[2023-03-23] MEDS: CEFEPIME 2 GM/NS 50 ML 2 GM/50 ML BAG IVPB ×3 (05:39→22:59)
[2023-03-23] MEDS: AZITHROMYCIN 500 MG/NS 250 ML 500 MG/250 ML BAG 250 MG IVPB (08:31)
[2023-03-23] MEDS: MORPHINE SULFATE (*CRX) 15 MG TABCR 30 MG PO ×2 (08:31→20:41)
[2023-03-23] MEDS: FILGRASTIM-SNDZ 480 MCG/0.8 ML SYRINGE SUB-Q (08:32)
[2023-03-23] MEDS: carvediloL 25 MG TABLET PO (08:32)
[2023-03-23] MEDS: DEXAMETHASONE 4 MG TABLET PO (08:32)
[2023-03-23] MEDS: PREGABALIN (*CRX) 75 MG CAPSULE 150 MG PO ×2 (08:32→16:46)
[2023-03-23] MEDS: MUPIROCIN 2% OINT 22 GM TUBE 1 APPLIC TOPICAL ×2 (08:39→16:46)
[2023-03-23] MEDS: SILVER SULFADIAZINE 1% CR 400 GM JAR (*BKC) 1 APPLIC TOPICAL (08:39)
[2023-03-23] MEDS: VANCOMYCIN 1,500 MG/NS 500 ML 1,500 MG/500 ML BAG 250 MG IVPB (10:58)
[2023-03-23 11:00] LABS: Hematocrit 25.2 % (42.0-52.0); Hemoglobin 7.9 g/dL (14.0-18.0); Mean Corpuscular HGB Conc 31.3 g/dl (32-36); Mean Corpuscular Hemoglobin 29.5 pg (26-34); Mean Platelet Volume 10.8 fl (7.4-10.4); Platelet Count Result 33 k/mm3 (150-375); Red Blood Count 2.68 M/mm3 (4.6-6.20); Red Cell Distribution Width 16.6 % (11.5-14.5); White Blood Count 9.2 K/mm3 (4.5-10.0)
[2023-03-23 11:17] LABS: Anion Gap 5 mmol/L (8-16); Blood Urea Nitrogen 10 mg/dL (9-20); Calcium 6.9 mg/dL (8.4-10.2); Carbon Dioxide 21 mmol/L (22-30); Chloride 113 mmol/L (98-107); Estimated CRCL calculation 178 ml/min; Estimated Glomerular Filt Rate > 60; Glucose 87 mg/dL (65-110); Phosphorus 2.1 mg/dL (2.5-4.5); Potassium 2.9 mmol/L (3.4-5.0); Sodium 139 mmol/L (137-145)
[2023-03-23 11:38] LABS: Anisocytosis 1+ (NORMAL); Band Neutrophils Percent 19 % (0-6); Hypochromasia 2+ (NORMAL); Lymphocytes Absolute Manual 0.55 K/mm3 (1.1-4.5); Metamyelocytes Percent 2 %; Monocytes Absolute Manual 0.09 K/mm3 (0.1-0.90); Monocytes Percent Manual 1 % (3-9); Neutrophils Absolute Manual 8.37 K/mm3 (1.3-6.7); Neutrophils Percent Manual 72 % (46-73); Platelet Estimate Decreased (Adequate); Schistocytes None Seen (NORMAL); Total Cells Counted 100
--- NOTE | 2023-03-23 16:18 | PM.IMPN ---
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, unspecified Status: Acute (3) Electrolyte disorder: Code(s): E87.8 - Other disorders of electrolyte and fluid balance, not elsewhere classified Status: Acute (4) Obesity: Code(s): E66.9 - Obesity, unspecified Status: Acute (5) Morbid obesity with BMI of 45.0-49.9, adult: Code(s): E66.01 - Morbid (severe) obesity due to excess calories; Z68.42 - Body mass index [BMI] 45.0-49.9, adult Status: Acute (6) Pancytopenia: Code(s): D61.818 - Other pancytopenia Status: Acute (7) Acute anemia: Code(s): D64.9 - Anemia, unspecified Status: Acute Plan Patient admitted to medical unit under full inpatient medical status Patient's temperature was 37.7?C on admission down to 36.3?C Monitor blood cultures Oncology consult given for evaluation and further treatment recommendations Patient had pancytopenia ... Which has now resolved Patient received 4 units of leukoreduced RBCs and 2 units of platelets since admission Patient ordered aggressive IV potassium and phosphate replacement yesterday and today for respective deficiencies Patient seen and evaluated by Oncology DC neutropenic precautions as her WBC count is now 9.2 DC Zarxio as per oncology Patient started initially on aggressive IV antibiotics the form of IV cefepime, vancomycin and azithromycin for febrile neutropenia Continue IV cefepime, DC vancomycin and azithromycin, add oral doxycycline... Patient will be discharged Augmentin and doxycycline as per oncology and ID pharmacist Patient's potassium is still 2.9 phosphate is 2.1 ... Additional IV potassium phosphate replacement ordered Monitor labs and electrolytes closely DC patient back to his facility in a.m. if he remains stable He will follow-up with [facility] on his established appointment on 03/31/2023 ? Patient seen and examined at bedside during my morning rounds ? Collaborated with patient's nurse at the bedside in detail and addressed all concerns ? Labs, electrolytes, radiology, investigations and test results reviewed ? Consult/Nursing/Ancilliary notes on the chart reviewed and appreciated ? Spoke with patient/mother at the bedside and answered all the questions that they had Repeat labs in a.m. Electrolyte replacement as per protocol. Patient will be monitored very closely on the floor. Further recommendations as per the hospital course. Subjective Date/time seen: 03/23/23 16:18 Interval history: Patient has the feeling better labs and electrolytes are up is now 9.2. Potassium is still low which is being replaced. Neutropenic precautions discontinued. Review of Systems Review of Systems: Patient feet, tired and fatigued. Difficulty ambulation with fall risk due to weakness. Denies any chest pain, seizures or headaches All systems reviewed & are unremarkable except as noted in HPI and below Exam Narrative: PHYSICAL EXAMINATION: Vital signs: Please see the chart General physical exam: Obese gentleman, lying in bed, appears to be weak, tired and fatigued Head/eyes: Atraumatic, EOMI, PERRLA ENT: Moist mucous membranes, nasal passages clear Neck: Supple, full range of motion, trachea midline CVS: S1 + S2, regular rate and rhythm, no murmurs Respiratory: Bilaterally fair air entry in both lung reynolds, mild B/L crackles, symmetric chest expansion, no distress Abdomen: Soft, non-tender, bowel sounds +ve, no organomegaly Extremities: No clubbing, no cyanosis, no edema, no calf tenderness Musculoskeletal: Moves all, adequate range of motion, no muscle spasms, +++ 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
[2023-03-23] MEDS: POTASSIUM PHOS,M-BASIC-D-BASIC 40 MMOL in SODIUM CHLORIDE 0.9% IV 250 ML 43.89 MMOL IVPB (17:27)
[2023-03-23] MEDS: DOXYCYCLINE HYCLATE 100 MG TABLET PO (20:41)
[2023-03-23] MEDS: BISACODYL 5 MG TABLET EC PO (20:41)
[2023-03-24] VITALS (11 sets, daily range): BP systolic 140–180; BP diastolic 71–84; PULSE 43–75; RESP 16–20; TEMP 36–36.8; O2SAT 96–100
[2023-03-24] MEDS: CEFEPIME 2 GM/NS 50 ML 2 GM/50 ML BAG IVPB ×2 (05:12→14:00)
[2023-03-24 05:24] LABS: Hematocrit 26.1 % (42.0-52.0); Hemoglobin 8.3 g/dL (14.0-18.0); Immature Platelet Fraction Pct 7.5 % (0.9-11.2); Mean Corpuscular HGB Conc 31.8 g/dl (32-36); Mean Corpuscular Hemoglobin 29.7 pg (26-34); Mean Corpuscular Volume 93.5 fl (80-100); Mean Platelet Volume 10.8 fl (7.4-10.4); Platelet Count Result 43 k/mm3 (150-375); Red Blood Count 2.79 M/mm3 (4.6-6.20); Red Cell Distribution Width 16.4 % (11.5-14.5); White Blood Count 15.7 K/mm3 (4.5-10.0)
[2023-03-24 05:32] LABS: Alanine Aminotransferase 22 U/L (6-50); Albumin Level 2.5 g/dL (3.5-5.1); Alkaline Phosphatase 75 U/L (38-126); Anion Gap 5 mmol/L (8-16); Aspartate Amino Transferase 26 U/L (17-59); Bilirubin,Total 0.5 mg/dL (0.2-1.3); Blood Urea Nitrogen 13 mg/dL (9-20); Calcium 8.3 mg/dL (8.4-10.2); Carbon Dioxide 26 mmol/L (22-30); Chloride 106 mmol/L (98-107); Estimated CRCL calculation 139 ml/min; Estimated Glomerular Filt Rate > 60; Glucose 85 mg/dL (65-110); Phosphorus 2.9 mg/dL (2.5-4.5); Potassium 3.7 mmol/L (3.4-5.0); Sodium 137 mmol/L (137-145)
[2023-03-24 05:36] LABS: Band Neutrophils Percent 17 % (0-6); Lymphocytes Absolute Manual 1.41 K/mm3 (1.1-4.5); Monocytes Absolute Manual 0.15 K/mm3 (0.1-0.90); Monocytes Percent Manual 1 % (3-9); Neutrophils Absolute Manual 14.13 K/mm3 (1.3-6.7); Neutrophils Percent Manual 73 % (46-73); Nucleated Red Blood Cells 1 %; Platelet Estimate Decreased (Adequate); Total Cells Counted 100
[2023-03-24 05:37] LABS: Anisocytosis 1+ (NORMAL); Hypochromasia 1+ (NORMAL); Schistocytes None Seen (NORMAL); Tear Drop Cells 1+ (NORMAL)
[2023-03-24] MEDS: LEVOTHYROXINE SODIUM 25 MCG TABLET PO (05:55)
[2023-03-24] MEDS: CENTRAL LINE FLUSH 10 ML IV PUSH ×2 (05:55→14:00)
[2023-03-24] MEDS: DEXAMETHASONE 4 MG TABLET PO (08:30)
[2023-03-24] MEDS: MUPIROCIN 2% OINT 22 GM TUBE 1 APPLIC TOPICAL ×2 (08:30→18:04)
[2023-03-24] MEDS: DOXYCYCLINE HYCLATE 100 MG TABLET PO (08:30)
[2023-03-24] MEDS: SILVER SULFADIAZINE 1% CR 400 GM JAR (*BKC) 1 APPLIC TOPICAL (08:30)
[2023-03-24] MEDS: MORPHINE SULFATE (*CRX) 15 MG TABCR 30 MG PO (08:30)
[2023-03-24] MEDS: PREGABALIN (*CRX) 75 MG CAPSULE 150 MG PO ×2 (08:30→17:58)
--- NOTE | 2023-03-24 14:12 | PM.DS ---
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 and soft tissue, unspecified Status: Acute (3) Electrolyte disorder: Code(s): E87.8 - Other disorders of electrolyte and fluid balance, not elsewhere classified Status: Acute (4) Obesity: Code(s): E66.9 - Obesity, unspecified Status: Acute (5) Morbid obesity with BMI of 45.0-49.9, adult: Code(s): E66.01 - Morbid (severe) obesity due to excess calories; Z68.42 - Body mass index [BMI] 45.0-49.9, adult Status: Acute (6) Pancytopenia: Code(s): D61.818 - Other pancytopenia Status: Acute (7) Acute anemia: Code(s): D64.9 - Anemia, unspecified Status: Acute DS: Summary Hospital Course Reason for hospitalization: Patient sent to the ER for treatment of abnormal lab work status post chemotherapy Hospital Course: H&P: HPI History of Present Illness Date/Time: 03/20/23? 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 HOSPITAL COURSE ... Date of Admission - 03/23/2023: Assessment and Plan (1) Fever and neutropenia: ?Code(s): D70.9 - Neutropenia, unspecified; R50.81 - Fever presenting with conditions classified elsewhere ?Status:?Acute (2) Sarcoma: ?Code(s): C49.9 - Malignant neoplasm of connective and soft tissue, unspecified ?Status:?Acute (3) Electrolyte disorder: ?Code(s): E87.8 - Other disorders of electrolyte and fluid balance, not elsewhere classified ?Status:?Acute (4) Obesity: ?Code(s): E66.9 - Obesity, unspecified ?Status:?Acute (5) Morbid obesity with BMI of 45.0-49.9, adult: ?Code(s): E66.01 - Morbid (severe) obesity due to excess calories; Z68.42 - Body mass index [BMI] 45.0-49.9, adult ?Status:?Acute (6) Pancytopenia: ?Code(s): D61.818 - Other pancytopenia ?Status:?Acute (7) Acute anemia: ?Code(s): D64.9 - Anemia, unspecified ?Status:?Acute Plan Patient admitted to medical unit under full inpatient medical status Patient's temperature was 37.7?C on admission down to 36.3?C Monitor blood cultures Oncology consult given for evaluation and further treatment recommendations Patient had pancytopenia ...? Which has now resolved Patient received 4 units of leukoreduced RBCs and 2 units of platelets since admission Patient ordered aggressive IV potassium and phosphate replacement yesterday and today for respective deficiencies Patient seen and evaluated by Oncology DC neutropenic precautions as her WBC count is now 9.2 DC Zarxio as per oncology Patient started initially on aggressive IV antibiotics the form of IV cefepime, vancomycin and azithromycin for febrile neutropenia Continue IV cefepime, DC vancomycin and azithromycin, add oral doxycycline...? Patient will be discharged Augmentin and doxycycline as per oncology and ID pharmacist Patient's potassium is still 2.9 phosphate is 2.1 ...? Additional IV potassium phosphate replacement ordered Monitor labs and electrolytes closely DC patient back to his facility in a.m. if he remains stable He will follow-up with [facility] on his established appointment on 03/31/2023 03/24/2023: Patient is and approaching his baseline. White blood cell count today is 15.7 secondary to continuous administration of zarxio for neutropenia which was discontinued yest
== END 2023-03-24 20:38 | DRG 139 ==
LOC: ANHED 03-20 21:56 → ANHIMU 03-20 23:44
PROVIDERS: Emergency Medicine; Internal Medicine Hematology & Oncology; Admitting Provider Internal Medicine; Emergency Provider Emergency Medicine; PCP Internal Medicine; Visit Provider Family Medicine
DX: J18.9 Pneumonia, unspecified organism (principal); C76.42 Malignant neoplasm of left upper limb; E66.01 Morbid (severe) obesity due to excess calories; D61.810 Antineoplastic chemotherapy induced pancytopenia; T45.1X5A Adverse effect of antineoplastic and immunosuppressive drugs, initial encounter; C78.00 Secondary malignant neoplasm of unspecified lung; E87.8 Other disorders of electrolyte and fluid balance, not elsewhere classified; D63.0 Anemia in neoplastic disease; D70.9 Neutropenia, unspecified; Z79.01 Long term (current) use of anticoagulants; Z11.52 Encounter for screening for COVID-19; Z68.38 Body mass index [BMI] 38.0-38.9, adult; Z68.42 Body mass index [BMI] 45.0-49.9, adult; Z92.21 Personal history of antineoplastic chemotherapy
CPT/HCPCS: 36415; 36430; 36600; 71045; 80048; 80053; 80202; 81001; 82565; 82607; 82728; 82746; 82805; 83540; 83550; 83605; 83735; 83880; 84100; 84132; 84145; 84484; 85025; 85055; 85610; 85730; 86850; 86900; 86901; 86923; 87040; 87637; 87641; 93005; 96360; 99285; A9270; J0456; J0692; J3370; J3475; J3480; J7030; J7040; J7050; J8540; P9016; P9034; Q5101; Q5110